=== PATIENT | male | born 1960 | race Caucasian/White ===

== ENCOUNTER → 2023-04-27 14:34 | Outpatient (REF) | payer BC, SELFPAY | LOC: RAD 14:34 | PROVIDERS: ATTENDING PHYSICIAN Nurse Practitioner Adult Health | DX: M25.561 Pain in right knee (principal); M25.562 Pain in left knee | CPT/HCPCS: 73564 ==

== ENCOUNTER → 2023-07-25 17:45 | Outpatient (REF) | payer BC, SELFPAY | LOC: RAD 17:45 | PROVIDERS: ATTENDING PHYSICIAN Nurse Practitioner Adult Health | DX: J06.9 Acute upper respiratory infection, unspecified (principal); R05.1 Acute cough | CPT/HCPCS: 71046 ==

== ENCOUNTER → 2023-08-06 11:50 | Outpatient (REF) | payer BC, SELFPAY | LOC: RAD 11:50 | PROVIDERS: ATTENDING PHYSICIAN Nurse Practitioner Adult Health | DX: M54.42 Lumbago with sciatica, left side (principal) | CPT/HCPCS: 72110 ==

== ENCOUNTER 2023-08-07 11:22 | Emergency (ER) | payer BC, SELFPAY ==
[2023-08-07 11:25] VITALS: BP 139/106
--- NOTE | 2023-08-07 12:15 | ED.GENMED ---
History of Present Illness
<Edwige Wheeler PA-C - Last Filed: 08/07/23 18:55>
General
Chief Complaint: Back Pain
Source: patient
Exam Limitations: none
Time Seen by Provider: 08/07/23 11:45
Nursing documentation reviewed up to this point in time: agreed with
History of Present Illness
History of Present Illness:
Patient is a 62-year-old male presenting for evaluation of worsening back pain. Patient states that symptoms been present for the past 2 weeks and worsening. He endorses pain in his left lower back with radiation down his left leg. He also
notices significant weakness in his left leg with walking. Pain is definitely worse with movement. Patient states that he had a fall few weeks ago which is when symptoms initially began. He then played golf for the week following the fall and
thinks he may have further irritated a possible back strain. He was seen by his primary care provider who performed a lumbar x-ray with no acute changes. He was prescribed Flexeril and diclofenac which she took for the first time yesterday and
then today. Medications have not helped the pain have caused him to feel significantly 'out of it '.
Patient does also note recent dysuria and dark stools. He does however deny any hematuria, abdominal pain, nausea, vomiting. Patient denies any groin paresthesia. Patient denies any bowel or bladder incontinence. Patient denies any fever or
chills.
Past History
<Edwige Wheeler PA-C - Last Filed: 08/07/23 18:55>
Past History
ED Past Medical History: CAD, GERD and Hypercholesterolemia
ED Past Surgical History: Cardiac
Social History
Tobacco: Non-smoker
Alcohol: Occasional
Personal:
Living: with family
Review of Systems
<Edwige Wheeler PA-C - Last Filed: 08/07/23 18:55>
Review of Systems
Allergies reviewed?: Yes
All Other Systems: ROS reviewed and negative except as documented in HPI and ROS
Phy Exam
<Edwige Wheeler PA-C - Last Filed: 08/07/23 18:55>
Physical Exam
Physical Exam:
Vitals: Hypertensive on arrival, otherwise vital signs stable. Afebrile
General: Patient is well appearing, no acute distress. Nontoxic-appearing
Skin: Warm and dry, no rashes or lesions
Head: Normocephalic, atraumatic
Eyes: Sclera nonicteric. EOMs intact. No nystagmus.
Throat: Protecting airway
Neck: Normal ROM, no cervical spine tenderness, no meningismus
Cardiac: Regular rate and rhythm, no murmurs.
Pulm: Normal respiratory effort, no wheezes, rales, rhonchi heard on exam.
Abdomen: Abdomen soft. No abdominal tenderness. No CVA tenderness
Rectal: Dark brown stool in vault, guaiac negative stool
Back: No cervical spine or midline spinal tenderness. No rashes or bruising noted. Negative left straight leg raise. Point tenderness at left SI joint.
Extremities: No evidence of cyanosis or edema. Great distal pulses and color.
Neuro: AAOx3. CN II-XII intact. No focal neurologic deficits. Sensation fully intact. Strength 5 out of 5 in upper and lower extremities. Steady gait
Psychiatric: Normal affect.
Course
<Edwige Wheeler PA-C - Last Filed: 08/07/23 18:55>
Orders/Labs/Results
Orders:
Orders
08/07/23 12:13
Acetaminophen [Tylenol] 650 mg PO NOW STA
Lidocaine [Lidocaine 4% Patch] 1 patch TOPICAL NOW STA
08/07/23 12:34
Complete Blood Count/With Diff Urgent
Comprehensive Metabolic Panel Urgent
Urinalysis Reflex To Culture Urgent
Date Specimen was Collected: 08/07/23
Time Specimen was Collected: 12:27
Abnormal Lab Results
08/07/23
12:34
RBC 4.64 L 10^6/uL
(4.70-6.10)
Abs Immat Gran (auto) 0.1 H 10^3/uL
(0-0.05)
Immature Gran % 0.9 H %
(0-0.5)
BUN 24 H mg/dl
(9-20)
08/07/23 12:34
08/07/23 12:34
Vital Signs
Initial and Last Documented VS:
Initial Vital Signs
Temp Pulse Resp BP Pulse Ox
97.9 F 70 20 139/106 98
08/07/23 11:25 08/07/23 11:25 08/07/23 11:25 08/07/23 11:25 08/07/23 11:25
Last Documented Vital Signs
Temp Pulse Resp BP Pulse Ox
97.9 F 64 18 126/88 96
08/07/23 11:25 08/07/23 13:54 08/07/23 13:54 08/07/23 13:54 08/07/23 13:54
<Joseph Manning, DO - Last Filed: 08/07/23 13:55>
Orders/Labs/Results
Orders:
Orders
08/07/23 12:13
Acetaminophen [Tylenol] 650 mg PO NOW STA
Lidocaine [Lidocaine 4% Patch] 1 patch TOPICAL NOW STA
08/07/23 12:34
Complete Blood Count/With Diff Urgent
Comprehensive Metabolic Panel Urgent
Urinalysis Reflex To Culture Urgent
Date Specimen was Collected: 08/07/23
Time Specimen was Collected: 12:27
Abnormal Lab Results
08/07/23
12:34
RBC 4.64 L 10^6/uL
(4.70-6.10)
Abs Immat Gran (auto) 0.1 H 10^3/uL
(0-0.05)
Immature Gran % 0.9 H %
(0-0.5)
BUN 24 H mg/dl
(9-20)
08/07/23 12:34
08/07/23 12:34
Vital Signs
Initial and Last Documented VS:
Initial Vital Signs
Temp Pulse Resp BP Pulse Ox
97.9 F 70 20 139/106 98
08/07/23 11:25 08/07/23 11:25 08/07/23 11:25 08/07/23 11:25 08/07/23 11:25
Last Documented Vital Signs
Temp Pulse Resp BP Pulse Ox
97.9 F 64 18 126/88 96
08/07/23 11:25 08/07/23 13:54 08/07/23 13:54 08/07/23 13:54 08/07/23 13:54
<Edwige Wheeler PA-C - Last Filed: 08/07/23 18:55>
MDM/Problems Addressed
Differential Diagnosis Includes:
Not limited to: Lumbar strain, lumbar spasm, sciatica, UTI, GI bleed
MDM/Problems Addressed:
62-year-old male presenting with worsening lower back pain following mechanical injury few weeks ago. No red flag back symptoms including bowel/bladder incontinence, groin anesthesia, fever, chills. Also endorses other vague symptoms including
dark stools and dysuria. Hypertensive on arrival, otherwise vital signs stable. Physical exam as above. He is well-appearing, in mild distress due to pain. He is ambulating with a steady gait. No focal neurologic findings. Abdomen soft and
nontender. No CVA tenderness. Patient has no midline cervical or spinal tenderness. Point tenderness at left SI joint with negative left straight leg raise. No rash. Patient did have an outpatient x-ray of lumbar spine performed yesterday by
primary care provider. I did review results which showed no acute abnormalities. Patient was prescribed Flexeril and diclofenac by his PCP who which she did take yesterday and today. He is significantly 'out of it 'which I suspect due to the
Flexeril. At this point�most suspicious for sciatica type pain. Will avoid further imaging at this time. Will treat symptomatically at this time with Tylenol, lidocaine patch. Will avoid opioids given how patient tolerated Flexeril. Given vague
other symptoms�will check basic labs, urinalysis. Did perform rectal exam with great rectal tone and guaiac negative stool. No evidence for GI bleed.
Labs noted. No clinically significant abnormalities. Urinalysis shows no signs of infection. Patient is ambulating in ER without significant difficulty. He seems somewhat improved since arrival. At this point�I do suspect this sciatic type
pain. Patient is stable for discharge with symptomatic treatment including Tylenol, Motrin, lidocaine. Recommended to discontinue Flexeril and diclofenac. Return precautions discussed with patient at length. Patient follow-up primary care
provider. Referral given for pain management doctor.
Case discussed with attending physician.
Chronic conditions affecting care:
N/A
Acute Exacerbation and/or Progression of Chronic Illness:
N/A
<Edwige Wheeler PA-C - Last Filed: 08/07/23 18:55>
*Pulse Oximetry
Patient hypoxic: no
*EKG
Interpreted by ED Provider?: NA
*Line Assembler Interpretation
Rate: Line Assembler- N/A
*Critical Care Note
Total Time (30-74mins, 75-104mins- exclusive of procedures): Not Applicable
ED Attending Note
<Edwige Wheeler PA-C - Last Filed: 08/07/23 18:55>
-
Portions of this chart may have been created with voice recognition software.� Occasional wrong word or��sound alike� substitutions may have occurred due to the inherent limitations of voice recognition software.
<Joseph Manning DO - Last Filed: 08/07/23 13:55>
ED Attending Note
Patient seen and examined by attending physician: Yes
I performed a history and physical exam of patient and discussed management with resident, I reviewed resident's note and agree with documented findings and plan of care.: Yes
ED Attending Note:
I have reviewed and agree with history and treatment plan by Edwige Wheeler. My exam revealed 62-year-old male ambulating without difficulty. Normal pulses in all extremities. Stable for discharge. Suspect sciatica. No signs of GI bleed.
Discharge Plan
Departure
Patient Disposition: Home (Routine Discharge)
Date of Disposition: 08/07/23
Time of Disposition: 13:38
Patient with high blood pressure during this ER visit?: Yes
Condition: Good
Covid-19: Not Applicable
Discharge Problem:
Low back pain
Instructions: Low Back Pain (DC), Sciatica (DC), BLOOD PRESSURE
Prescriptions:
New
gabapentin 300 mg capsule
300 mg PO TID PRN (Reason: pain) Qty: 30 0RF
No Action
aspirin [Aspir-Low] 81 MG tablet,delayed release (DR/EC)
81 mg PO DAILY
Referrals:
Santi Santos MD [Active] - Call in 1-3 days for appt
Nelson Reese CRNP [Family Provider] -
Activity Restrictions/Additional Instructions:
RETURN TO THE EMERGENCY DEPARTMENT WITH ANY FEVERS, CHILLS, INTRACTABLE PAIN, WORSENING IN WEAKNESS, NUMBNESS/TINGLING IN LOWER EXTREMITIES OR GROIN, BOWEL/BLADDER INCONTINENCE, WORSENING IN CURRENT SYMPTOMS, OR ANY OTHER CONCERNS
-A prescription for gabapentin has been sent to your pharmacy. You can take this up to 3 times a day as needed for pain. In addition�you can take Tylenol and/or Motrin. You can apply [id number] lidocaine patches. Apply heat or ice as
needed for discomfort.
-You should discontinue the cyclobenzaprine at this time.
-Follow-up with your primary care provider for further evaluation/management and to ensure that symptoms are improving. You can also call Dr. Santos for further evaluation pain management
Interventions
Interventions:
*Risk Screen - Suicide Last Done: 08/07/23 11:25
*General Assessment Last Done: 08/07/23 11:25
*Neglect/Abuse Screening Last Done: 08/07/23 11:25
ED- Fall Risk Assessment Last Done: 08/07/23 12:48
*Nursing Disposition Last Done: 08/07/23 14:00
ED-Musculoskeletal Assessment Last Done: 08/07/23 12:47
Discharge Date and Time
Discharge Date/Time: 08/07/23 14:08
Print Language: SLOVENIAN
[2023-08-07] MEDS: LIDOCAINE 4% PATCH 1 PATCH TOPICAL (12:38)
[2023-08-07] MEDS: TYLENOL 650 MG PO (12:38)
[2023-08-07 12:47] LABS: % Basophils 1.2 % (0-2); % Eosinophils 3.3 % (0-6); % Immature Granulocytes 0.9 % (0-0.5); % Lymphocytes 39.1 % (20.5-51.1); % Monocytes 8.8 % (1.7-9.3); % Neutrophils 46.7 % (42.2-75.2); Absolute Basophils 0.1 10^3/uL (0-0.2); Absolute Eosinophils 0.2 10^3/uL (0-0.7); Absolute Immature Granulocytes 0.1 10^3/uL (0-0.05); Absolute Lymphocytes 2.6 10^3/uL (1.2-3.4); Absolute Monocytes 0.6 10^3/uL (0.1-0.6); Absolute Neutrophils 3.1 10^3/uL (1.4-6.5); Hematocrit 41.4 % (39.0-52.0); Hemoglobin 14.4 g/dL (13.0-18.0); Mean Corp Hgb Conc. 34.8 g/dL (33.0-37.0); Mean Corpuscular Volume 89.2 fL (80.0-94.0); Mean Platelet Volume 9.1 fL (7.4-10.4); Nucleated Red Blood Cells % 0 % (-); Platelet Count 249 10^3/uL (130-400); Red Blood Cell Count 4.64 10^6/uL (4.70-6.10); Red Cell Dist. Width 13.2 % (11.5-14.5); White Blood Cell Count 6.6 10^3/uL (4.8-10.8)
[2023-08-07 12:56] LABS: Urine Albumin Negative (Neg - Trace); Urine Bilirubin Negative (Negative); Urine Character Clear (Clear); Urine Color Yellow; Urine Glucose Negative (Negative); Urine Ketone Negative (Negative); Urine Leukocyte Negative (Negative); Urine Nitrite Negative (Negative); Urine Occult Blood Negative (Negative); Urine Specific Gravity 1.015 (<1.030); Urine Urobilinogen Negative (Neg - 1+)
[2023-08-07 13:05] LABS: ALT (SGPT) 31 U/L (0-50); AST (SGOT) 29 U/L (17-59); Albumin 4.2 g/dl (3.5-5.0); Alkaline Phosphatase 55 U/L (38-126); Blood Urea Nitrogen 24 mg/dl (9-20); Calcium 8.7 mg/dl (8.4-10.2); Carbon Dioxide 29 mmol/L (22-30); Chloride 103 mmol/L (98-107); Glucose 87 mg/dl (70-99); Sodium 139 mmol/L (135-145); Total Bilirubin 0.6 mg/dl (0.2-1.3); Total Protein 6.7 g/dl (6.3-8.2); eGFR > 60.00
[2023-08-07 13:54] VITALS: BP 126/88
== END 2023-08-07 14:08 | disposition home or self-care (01) ==
LOC: EMR 11:22
PROVIDERS: Physician Assistant; EMERGENCY PHYSICIAN Emergency Medicine; FAMILY PHYSICIAN Nurse Practitioner Adult Health
DX: M54.50 Low back pain, unspecified (principal); M79.605 Pain in left leg; R19.5 Other fecal abnormalities; K92.1 Melena; R30.0 Dysuria; R53.1 Weakness; I10 Essential (primary) hypertension; I25.10 Atherosclerotic heart disease of native coronary artery without angina pectoris; E78.00 Pure hypercholesterolemia, unspecified; K21.9 Gastro-esophageal reflux disease without esophagitis; Z88.0 Allergy status to penicillin
CPT/HCPCS: 99283; 80053; 81003; 85025

== ENCOUNTER 2023-08-30 17:55 | Outpatient (RCR) | payer BC, SELFPAY | END 2023-08-30 23:59 | disposition home or self-care (01) | LOC: RPT 17:55 | PROVIDERS: ATTENDING PHYSICIAN Nurse Practitioner Adult Health | DX: M54.50 Low back pain, unspecified (principal); M62.81 Muscle weakness (generalized); Z73.6 Limitation of activities due to disability | CPT/HCPCS: 97110; 97162; 97530 ==

== ENCOUNTER 2023-10-12 12:52 | Outpatient (RCR) | payer BC, SELFPAY | END 2023-10-12 23:59 | disposition home or self-care (01) | LOC: RPT 12:52 | PROVIDERS: ATTENDING PHYSICIAN Nurse Practitioner Adult Health | DX: M54.50 Low back pain, unspecified (principal); M62.81 Muscle weakness (generalized); Z73.6 Limitation of activities due to disability | CPT/HCPCS: 97110; 97112; 97140; 97530 ==

== ENCOUNTER 2023-11-06 16:57 | Outpatient (RCR) | payer BC, SELFPAY | END 2023-11-12 07:35 | disposition home or self-care (01) | LOC: RPT 16:57 | PROVIDERS: ATTENDING PHYSICIAN Nurse Practitioner Adult Health | DX: M54.50 Low back pain, unspecified (principal); Z73.6 Limitation of activities due to disability; M62.81 Muscle weakness (generalized) | CPT/HCPCS: 97110; 97112; 97530 ==

== ENCOUNTER → 2023-11-12 15:43 | Outpatient (REF) | payer BC, SELFPAY | LOC: RAD 15:43 | PROVIDERS: ATTENDING PHYSICIAN Nurse Practitioner Adult Health | DX: M79.672 Pain in left foot (principal); M79.89 Other specified soft tissue disorders | CPT/HCPCS: 73630 ==

== ENCOUNTER → 2023-11-30 11:03 | Outpatient (REF) | payer MEDICARE, OTHER, SELFPAY ==
[2023-11-30 12:59] LABS: % Basophils 1.4 % (0-2); % Eosinophils 6.2 % (0-6); % Immature Granulocytes 0.2 % (0-0.5); % Lymphocytes 25.3 % (20.5-51.1); % Monocytes 9.2 % (1.7-9.3); % Neutrophils 57.7 % (42.2-75.2); Absolute Basophils 0.1 10^3/uL (0-0.2); Absolute Eosinophils 0.4 10^3/uL (0-0.7); Absolute Lymphocytes 1.6 10^3/uL (1.2-3.4); Absolute Monocytes 0.6 10^3/uL (0.1-0.6); Absolute Neutrophils 3.6 10^3/uL (1.4-6.5); Hemoglobin 14.6 g/dL (13.0-18.0); Mean Corpuscular Hgb 31.1 pg (27.0-31.0); Mean Corpuscular Volume 91.7 fL (80.0-94.0); Mean Platelet Volume 10.1 fL (7.4-10.4); Nucleated Red Blood Cells % 0 % (-); Platelet Count 233 10^3/uL (130-400); Red Blood Cell Count 4.69 10^6/uL (4.70-6.10); White Blood Cell Count 6.3 10^3/uL (4.8-10.8)
[2023-11-30 13:29] LABS: ALT (SGPT) 30 U/L (0-50); AST (SGOT) 34 U/L (17-59); Albumin 4.5 g/dl (3.5-5.0); Alkaline Phosphatase 60 U/L (38-126); Blood Urea Nitrogen 16 mg/dl (9-20); Calcium 9.4 mg/dl (8.4-10.2); Carbon Dioxide 28 mmol/L (22-30); Chloride 103 mmol/L (98-107); Glucose 93 mg/dl (70-99); HDL Cholesterol 61 mg/dl; LDL Cholesterol, Calculated 50 mg/dl; Potassium 4.4 mmol/L (3.5-5.1); Sodium 143 mmol/L (135-145); Total Bilirubin 0.5 mg/dl (0.2-1.3); Total Cholesterol 140 mg/dl (50-199); Total Protein 7.1 g/dl (6.3-8.2); Triglyceride 146 mg/dl (10-149); Very Low Density Lipoprotein 29 mg/dl (0-30); eGFR > 60.00
[2023-11-30 13:57] LABS: TSH Reflex To Free T4 0.95 uIU/ml (0.47-4.68)
[2023-12-03 07:04] LABS: PSA Total 2.8 ng/mL (0.0-4.0)
== END ==
LOC: REG 11:03
PROVIDERS: ATTENDING PHYSICIAN Nurse Practitioner Adult Health
DX: Z00.00 Encounter for general adult medical examination without abnormal findings (principal); E78.5 Hyperlipidemia, unspecified; Z12.5 Encounter for screening for malignant neoplasm of prostate
CPT/HCPCS: 36415; 80053; 80061; 84153; 84154; 84443; 85025

== ENCOUNTER 2023-12-07 09:11 | Outpatient (RCR) | payer MEDICARE, OTHER, SELFPAY | END 2023-12-07 23:59 | disposition home or self-care (01) | LOC: RST 09:11 | PROVIDERS: FAMILY PHYSICIAN Nurse Practitioner Adult Health | DX: G30.0 Alzheimer's disease with early onset (principal); R47.89 Other speech disturbances; R41.841 Cognitive communication deficit | CPT/HCPCS: 96125 ==

== ENCOUNTER 2024-01-07 11:02 | Outpatient (RCR) | payer MEDICARE, OTHER, SELFPAY | END 2024-01-07 23:59 | disposition home or self-care (01) | LOC: RST 11:02 | PROVIDERS: FAMILY PHYSICIAN Nurse Practitioner Adult Health | DX: R47.89 Other speech disturbances (principal); G30.0 Alzheimer's disease with early onset; R41.841 Cognitive communication deficit; R47.02 Dysphasia | CPT/HCPCS: 92507; 92523 ==

== ENCOUNTER 2024-02-11 11:15 | Outpatient (RCR) | payer MEDICARE, OTHER, SELFPAY | END 2024-02-11 23:59 | disposition home or self-care (01) | LOC: RST 11:15 | PROVIDERS: FAMILY PHYSICIAN Nurse Practitioner Adult Health | DX: R47.89 Other speech disturbances (principal); G30.0 Alzheimer's disease with early onset; R41.841 Cognitive communication deficit; R47.02 Dysphasia | CPT/HCPCS: 92507 ==

== ENCOUNTER 2024-03-04 15:13 | Outpatient (RCR) | payer MEDICARE, OTHER, SELFPAY | END 2024-03-04 23:59 | disposition home or self-care (01) | LOC: RST 15:13 | PROVIDERS: ATTENDING PHYSICIAN Nurse Practitioner Adult Health | DX: R47.89 Other speech disturbances (principal); G30.0 Alzheimer's disease with early onset; R41.841 Cognitive communication deficit; R47.02 Dysphasia | CPT/HCPCS: 92507; 97129; 97130 ==

== ENCOUNTER 2024-04-07 11:53 | Outpatient (RCR) | payer MEDICARE, OTHER, SELFPAY | END 2024-04-07 23:59 | disposition home or self-care (01) | LOC: RST 11:53 | PROVIDERS: ATTENDING PHYSICIAN Nurse Practitioner Adult Health | DX: R47.89 Other speech disturbances (principal); G30.0 Alzheimer's disease with early onset; R41.841 Cognitive communication deficit; R47.02 Dysphasia | CPT/HCPCS: 92507; 97129; 97130 ==

== ENCOUNTER 2024-05-05 11:07 | Outpatient (RCR) | payer MEDICARE, OTHER, SELFPAY | END 2024-05-05 23:59 | disposition home or self-care (01) | LOC: RST 11:07 | PROVIDERS: ATTENDING PHYSICIAN Nurse Practitioner Adult Health | DX: R47.89 Other speech disturbances (principal); G30.0 Alzheimer's disease with early onset; R41.841 Cognitive communication deficit; R47.02 Dysphasia | CPT/HCPCS: 92507 ==

== ENCOUNTER 2024-06-23 12:17 | Outpatient (RCR) | payer MEDICARE, OTHER, SELFPAY | END 2024-06-23 23:59 | disposition home or self-care (01) | LOC: RST 12:17 | PROVIDERS: ATTENDING PHYSICIAN Nurse Practitioner Adult Health | DX: R47.89 Other speech disturbances (principal); G30.0 Alzheimer's disease with early onset; R41.841 Cognitive communication deficit; R47.02 Dysphasia | CPT/HCPCS: 92507 ==

== ENCOUNTER 2024-08-07 13:17 | Outpatient (RCR) | payer MEDICARE, OTHER, SELFPAY | END 2024-08-07 23:59 | disposition home or self-care (01) | LOC: RST 13:17 | PROVIDERS: ATTENDING PHYSICIAN Nurse Practitioner Adult Health | DX: R47.89 Other speech disturbances (principal); G30.0 Alzheimer's disease with early onset; R41.841 Cognitive communication deficit; R47.02 Dysphasia | CPT/HCPCS: 92507 ==